=== PATIENT | female | born 1995 ===

== ENCOUNTER 2017-02-08 13:57 | Emergency (ER) | payer OTHER ==
[2017-02-08 15:42] VITALS: BP 108/64
--- NOTE | 2017-02-08 18:47 | UC ---
Ear Complaint HPI - HPI Summary HPI Summary: PT P/W 4 DAYS H/O RINGING IN THE LEFT EAR, CONSTANT ANNOYING AND INTERFERING WITH SLEEP. - History of Current Complaint Chief Complaint: UCEar Stated Complaint: LEFT EAR COMPLAINT Time Seen by Provider: 02/08/17 15:42 Hx Obtained From: Patient Hx Last Menstrual Period: 02/03/17 ?: No Onset/Duration: Sudden Onset, Lasting Days Pain Intensity: 0 Pain Scale Used: 0-10 Numeric Aggravating Factors: Nothing Alleviating Factors: Nothing Associated Signs/Symptoms: Negative: Discharge, Hearing Loss, Foreign Body Sensation, Trauma to Ear, URI Symptoms Related History: Seasonal Allergies - Allergies/Home Medications Allergies/Adverse Reactions: Allergies Allergy/AdvReac Type Severity Reaction Status Date / Time No Known Allergies Allergy Verified 02/08/17 15:42 Home Medications: Home Medications Fluticasone NASAL * [Flonase *] 1 spray INH DAILY 02/08/17 [History Confirmed ] PMH/Surg Hx/FS Hx/Imm Hx Previously Healthy: Yes - Surgical History Surgical History: None - Family History Known Family History: Negative: Cardiac Disease, Hypertension, Diabetes - Social History Occupation: Student Alcohol Use: None Substance Use Type: None Smoking Status (MU): Never Smoked Tobacco Review of Systems Constitutional: Negative Skin: Negative Eyes: Negative ENT: Ear Ache Respiratory: Negative Neurological: Negative All Other Systems Reviewed And Are Negative: Yes Physical Exam Triage Information Reviewed: Yes Appearance: Well-Appearing, No Pain Distress, Well-Nourished Vital Signs: Initial Vital Signs Temp 98.7 F 02/08/17 15:36 Pulse 98 02/08/17 15:36 Resp 16 02/08/17 15:36 BP 108/64 02/08/17 15:36 Pulse Ox 100 02/08/17 15:36 Vital Signs Reviewed: Yes Eyes: Positive: Conjunctiva Clear. Negative: Discharge ENT: Positive: Hearing grossly normal, Pharynx normal. Negative: Nasal congestion, Nasal drainage, TMs normal - TM OCCULDED BL ON INITIAL INSPECTION. S/P IRRIGATION SEROUS FLUID NOTED BEHIND TM, Tonsillar swelling, Tonsillar exudate, Trismus, Muffled/hoarse voice Neck: Positive: Supple, Nontender, No Lymphadenopathy Respiratory: Positive: Lungs clear, Normal breath sounds, No respiratory distress, No accessory muscle use Cardiovascular: Positive: RRR, No Murmur Musculoskeletal Exam: Normal Neurological: Positive: Alert, Muscle Tone Normal Psychological: Positive: Age Appropriate Behavior Ear Complaint Course/Dx - Differential Dx/Diagnosis Differential Diagnosis/HQI/PQRI: Cerumen Impaction, Otitis Externa, Otitis Media Provider Diagnoses: CERUMEN IMPACTION, TINNITUS Discharge - Discharge Plan Condition: Stable Disposition: HOME Patient Education Materials: Allergies (ED), Cerumen Impaction (ED), Tinnitus ( ED) Referrals: Aaron Pantoja MD [Medical Doctor] - (FOLLOW UP ON 02/11/17.) Additional Instructions: CONTINUE FLONASE. USE 25-50MG OF BENADRYL BEFORE BED TO HELP WITH SLEEP AND ALLERGY SYMPTOMS OVER THE WEEKEND. USE THE SMALLEST EFFECTIVE DOSE. IF SYMPTOMS HAVE NOT IMPROVED OVER THE WEEKEND, FOLLOW UP WITH ENT ON SATURDAY.
== END 2017-02-08 17:30 | disposition home or self-care (01) ==
LOC: UCCORT 13:57
DX: H61.22 Impacted cerumen, left ear (principal); H93.12 Tinnitus, left ear
CPT/HCPCS: 99203; G0463